=== PATIENT | female | born 1975 | race Hispanic/Latino ===

== ENCOUNTER 2020-12-12 14:19 | Emergency (ER) | payer BC ==
[2020-12-13 21:10] LABS: SARS-CoV-2 PCR by NAA Not Detected (NotDetected)
== END 2020-12-12 17:27 | disposition home or self-care (01) ==
LOC: NAV ERS 14:19
DX: O99.512 Diseases of the respiratory system complicating pregnancy, second trimester (principal); J02.9 Acute pharyngitis, unspecified; O99.891 Other specified diseases and conditions complicating pregnancy; N64.89 Other specified disorders of breast; O09.522 Supervision of elderly multigravida, second trimester; Z20.822 Contact with and (suspected) exposure to COVID-19; Z3A.30 30 weeks gestation of pregnancy
CPT/HCPCS: 93005; U0003; U0005

== ENCOUNTER 2020-12-19 18:47 | Emergency (ER) | payer BC ==
[2020-12-19] MEDS ORDERED: Ondansetron ODT 4 MG TAB ONE (19:43)
== END 2020-12-19 19:44 | disposition home or self-care (01) ==
LOC: NAV ERS 18:47
DX: O98.513 Other viral diseases complicating pregnancy, third trimester (principal); U07.1 COVID-19; Z3A.32 32 weeks gestation of pregnancy
CPT/HCPCS: 99283; Q0162